=== PATIENT | female | born 1955 | race African-American/Black ===

== ENCOUNTER → 2017-09-22 | Outpatient (CLI) | payer SELFPAY | END | disposition home or self-care (01) | LOC: RAD 11:18 | DX: M16.0 Bilateral primary osteoarthritis of hip (principal); M17.11 Unilateral primary osteoarthritis, right knee; M25.461 Effusion, right knee; M25.551 Pain in right hip; M25.561 Pain in right knee | CPT/HCPCS: 73521; 73560 ==

== ENCOUNTER 2017-10-11 14:38 | Emergency (ER) | payer SELFPAY ==
[~2017-10-11] VITALS: Ht 167.6 cm; Wt 70.4 kg
[2017-10-11 15:25] LABS: HEMATOCRIT 36.8 % (36.0-46.0); HEMOGLOBIN 12.4 G/DL (11.9-15.5); MCHC 33.7 G/DL (30.0-36.0); MCV 83.1 FL (83-99); PLATELET COUNT 393 K/uL (156-360); RBC DIS.WIDTH-SD 36.7 % (39-53); RED BLOOD COUNT 4.43 M/uL (3.80-5.20); WHITE BLOOD COUNT 9.2 K/uL (4.1-10.2)
[2017-10-11 15:33] LABS: CHLORIDE 99 mEq/L (99-109); POTASSIUM 3.3 mEq/L (3.7-5.4)
[2017-10-11 15:34] LABS: SODIUM 141 mEq/L (136-147)
[2017-10-11 15:35] LABS: GLUCOSE 139 mg/dL (70-99)
[2017-10-11 15:39] LABS: GFR ESTIMATE (CALCULATED) > 59 mL/min/
[2017-10-11 15:40] LABS: UREA NITROGEN (BUN) 18 mg/dL (9-23)
[2017-10-11 16:01] LABS: ERTH.SED.RATE 42 MM/HR (0-30)
[2017-10-11 16:05] LABS: HIGH-SENS C-REACTIVE PROTEIN 0.27 MG/DL (0.02-0.20)
[2017-10-11 19:21] VITALS: BP 151/97
== END 2017-10-11 19:21 | disposition home or self-care (01) ==
LOC: EME 14:38
PROVIDERS: Family Medicine
DX: M25.461 Effusion, right knee (principal); M25.561 Pain in right knee; M79.651 Pain in right thigh
CPT/HCPCS: 73564; 80048; 85027; 85651; 86141; 99281; 99285

== ENCOUNTER → 2017-10-19 | Outpatient (CLI) | payer SELFPAY | END | disposition home or self-care (01) | LOC: RAD 12:58 | DX: S83.511A Sprain of anterior cruciate ligament of right knee, initial encounter (principal); S83.521A Sprain of posterior cruciate ligament of right knee, initial encounter; M25.461 Effusion, right knee; M70.41 Prepatellar bursitis, right knee; M17.11 Unilateral primary osteoarthritis, right knee | CPT/HCPCS: 73721 ==